=== PATIENT | male | born 1990 | race Caucasian/White ===

== ENCOUNTER 2016-09-01 19:54 | Emergency (ER) | payer BC ==
[2016-09-01] MEDS ORDERED: Acetaminophen 500 MG TAB ONE (20:07)
[2016-09-01] MEDS ORDERED: Azithromycin 250 MG TAB ONE (20:40)
== END 2016-09-01 20:50 | disposition home or self-care (01) ==
LOC: MADERS 19:54
DX: J20.9 Acute bronchitis, unspecified (principal)
CPT/HCPCS: 87081; 87430; 99283

== ENCOUNTER 2017-01-17 20:04 | Emergency (ER) | payer BC ==
[2017-01-17] MEDS ORDERED: Ibuprofen 800 MG TAB ONE (20:46)
[2017-01-17] MEDS ORDERED: Acetaminophen 325 MG TAB ONE (21:28)
[2017-01-17] MEDS ORDERED: Bicillin LA 600 THOU.UNITS/ML SYRINGE ONE (21:28)
== END 2017-01-17 21:53 | disposition home or self-care (01) ==
LOC: MADERS 20:04
DX: J02.0 Streptococcal pharyngitis (principal)
CPT/HCPCS: 87430; 96372; J0561

== ENCOUNTER 2018-03-11 11:49 | Emergency (ER) | payer BC ==
[2018-03-11] MEDS ORDERED: Ibuprofen 800 MG TAB ONE (12:12)
--- NOTE | 2018-03-11 12:32 | RAD ---
CERVICAL SPINE THREE VIEWS: INDICATIONS: History of trauma and neck pain. COMPARISON: None. FINDINGS: The cervical spine is evaluated to the C7-T1 junction. Spinal alignment is preserved. Vertebral bod y heights and disk spaces are preserved. Prevertebral soft tissues are normal appearing. The latera l masses are partially obscured on open-mouth odontoid view. The lung apices are clear. IMPRESSION: 1. No definite acute osseous abnormality. 2. Limitations of examination as above. If there is further concern for cervical spinal injury, follow-up CT of the cervical spine may be hel pful for improved evaluation. POS: GERHARD
== END 2018-03-11 12:30 | disposition home or self-care (01) ==
LOC: MADERS 11:49
DX: T14.8XXA Other injury of unspecified body region, initial encounter (principal); V43.52XA Car driver injured in collision with other type car in traffic accident, initial encounter
CPT/HCPCS: 72040

== ENCOUNTER 2019-02-21 02:53 | Emergency (ER) | payer BC ==
[2019-02-21 03:39] LABS: #Basophils 0.1 thou/uL (0.0-0.2); #Eosinphils 0.2 thou/uL (0.0-0.7); #Lymphocytes 2.6 thou/uL (1.20-3.40); #Monocytes 0.6 thou/uL (0.11-0.59); #Neutrophils 5.2 thou/uL (1.40-6.50); %Basophils 1.4 % (0.0-1.0); %Eosinophils 1.8 % (0.0-10.0); %Lymphocytes 29.5 % (21.0-51.0); %Monocytes 7.2 % (0.0-10.0); %Neutrophils 60.1 % (42.0-75.0); Hemoglobin 14.9 g/dL (14.0-18.0); Mean Corpuscular HGB CONC 35.4 g/dL (32.0-36.0); Mean Corpuscular Hemoglobin 30.2 pg (27.0-31.0); Mean Corpuscular Volume 85.2 fL (78.0-98.0); Mean Platelet Volume 7.1 fL (7.4-10.4); Platelet Count 208 thou/uL (130-400); RBC Distribution Width 11.5 % (11.5-14.5); Red Blood Cell (RBC) Count 4.95 mill/uL (4.70-6.10); White Blood Cell (WBC) Count 8.7 thou/uL (4.8-10.8)
[2019-02-21 03:51] LABS: Anion Gap 12 mmol/L (10-20); BUN (Urea Nitrogen) 12 mg/dL (8.9-20.6); Calc. Creatinine Clearance 0 mL/min (70-130); Calcium 8.8 mg/dL (7.8-10.44); Carbon Dioxide 26 mmol/L (22-29); Chloride 107 mmol/L (98-107); Estimated GFR-MDRD 73; Glucose 98 mg/dL (70-105); Sodium 141 mmol/L (136-145)
--- NOTE | 2019-02-21 08:11 | CT ---
PRELIMINARY REPORT/[facility]/EMERGENCY AFTER HOURS PROCEDURE: PROCEDURE INFORMATION: Exam: CT Head without contrast Exam date and time: 02/21/2019 3:23 AM Clinical history: 28 years old, male; Malaise or fatigue and other: Shaking TECHNIQUE: Imaging protocol: Computed tomography of the head without contrast. COMPARISON: No relevant prior studies available. FINDINGS: Brain: No hemorrhage. Unremarkable white matter. No mass effect. Ventricles: No ventriculomegaly. Bones/joints: No acute fracture. Sinuses: Visualized sinuses are unremarkable. No fluid levels. Mastoid air cells: Visualized mastoid air cells are well aerated. Soft tissues: Unremarkable. IMPRESSION: No acute intracranial abnormality. Thank you for allowing us to participate in the care of your patient. Dictated and Authenticated by: Stefany Duque MD 02/21/2019 3:39 AM Central Time ([place] & [place]) FINAL REPORT EMERGENCY AFTER HOURS CT BRAIN WITHOUT CONTRAST: Date: 02/21/19 COMPARISON: 06/07/15. FINDINGS/IMPRESSION: I agree with the findings and impression given in the preliminary report per [facility] physician. No evide nce of acute intracranial abnormality. POS: CET
== END 2019-02-21 04:15 | disposition home or self-care (01) ==
LOC: MADERS 02:53
DX: R25.1 Tremor, unspecified (principal)
CPT/HCPCS: 36415; 70450; 80048; 85025